=== PATIENT | male | born 1980 | race Caucasian/White ===

== ENCOUNTER → 2016-10-27 | Outpatient (CLI) | payer BC ==
[2016-10-27 14:54] LABS: DAYS OF ABSTINENCE 4; METHOD OF COLLECTION MASTURBATION; SEMEN COLOR YELLOW-GRAY (GRY/GRYWHTE); SEMEN TIME OF COLLECTION 841; SEMEN VOLUME 1.3 ML (>1.5); TYPE OF SPECIMEN CONTAINER STERILE CUP
[2016-10-27 14:55] LABS: SPERM VIABILITY STAIN NOT INDICATED % (>58%)
== END | disposition home or self-care (01) ==
LOC: C.LAB 09:04
PROVIDERS: ATTEND Obstetrics & Gynecology
DX: Z31.41 Encounter for fertility testing (principal)